=== PATIENT | female | born 1960 | race American Indian/Alaskan Native ===

== ENCOUNTER 2016-11-18 16:49 | Emergency (ER) | payer OTHER ==
--- NOTE | 2016-11-18 17:39 | Emergency Department Report ---
Chief Complaint: High BP Stated Complaint: ELEVATED BP 216/106 Time Seen by Provider: 11/18/16 17:37 - HPI History of Present Illness: PT c/o elevated bp. 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 PT states she has been off her bp medication x 1 week. - ROS Review of Systems: - syncope - sob - Exam Vital Signs: Vital Signs 11/18/16 17:34 Temperature 98.3 F Pulse Rate 71 Respiratory 16 Rate Blood Pressure 186/101 O2 Sat by Pulse 99 Oximetry Physical Exam: pt looks well, non toxic. no acute distress in triage. gcs 15 MSE screening note: Focused history and physical exam performed. Due to findings the following was ordered: labs ED Disposition for MSE Condition: Stable
[2016-11-18 17:55] LABS: Basophils % (Auto) 0.5 % (0.0-1.8); Eosinophils % (Auto) 0.7 % (0.0-4.3); Hematocrit 43.3 % (30.3-42.9); Hemoglobin 13.8 gm/dl (10.1-14.3); Mean Corpuscular HGB Conc 32 % (30-34); Mean Corpuscular Hemoglobin 28 pg (28-32); Mean Corpuscular Volume 87 fl (79-97); Platelet Count 257 K/mm3 (140-440); Red Blood Count 4.99 M/mm3 (3.65-5.03); Red Cell Distribution Width 13.8 % (13.2-15.2); White Blood Count 6.5 K/mm3 (4.5-11.0)
[2016-11-18 18:11] LABS: Anion Gap 19 mmol/L; BUN/Creatinine Ratio 17.77; Blood Urea Nitrogen 16 mg/dL (7-17); Calcium 9.2 mg/dL (8.4-10.2); Carbon Dioxide 26 mmol/L (22-30); Chloride 102.4 mmol/L (98-107); Glucose 99 mg/dL (65-100); Potassium 4.1 mmol/L (3.6-5.0); Sodium 143 mmol/L (137-145)
[2016-11-18] MEDS ORDERED: CATAPRES PO ONE (22:45)
[2016-11-18] MEDS ORDERED: APRESOLINE IV ONE (23:04)
--- NOTE | 2016-11-18 23:17 | Emergency Department Report ---
HPI - General Chief Complaint: High BP Time Seen by Provider: 11/18/16 17:37 - HPI HPI: This is a 56-year-old female presents emergency Department from home with complaint of elevated and uncontrolled blood pressure. The patient has a history of hypertension for which she is normally on 25 mg of hydrochlorothiazide but the patient is been without that medication for about 2 weeks. She used to see a Dr. Omari Hercules for primary care needs but says she is trying to find another physician. She denies any headache, chest pain, shortness breath, nausea, vomiting. She is not taken anything for her symptoms prior to presentation. She was walking around [facility] and she decided to check her blood pressure. When it showed to be very elevated, she went to a fire department where it was rechecked and once again found to be very high, and she was encouraged to go to the emergency department. No recent travel or sick contacts at home. She denies tobacco abuse. She denies any excessive caffeinated product use. ED Past Medical Hx - Past Medical History Previous Medical History?: Yes Hx Hypertension: Yes - Surgical History Past Surgical History?: Yes Additional Surgical History: hysterectomy - Social History Smoking Status: Never Smoker Substance Use Type: None - Medications Home Medications: Home Medications Medication Instructions Recorded Confirmed Last Taken Type amLODIPine [Norvasc] 5 mg PO DAILY #30 tab 11/19/16 Unknown Rx ED Review of Systems ROS: Stated complaint: ELEVATED BP 216/106 Other details as noted in HPI Comment: All other systems reviewed and negative Constitutional: denies: chills, fever Eyes: denies: eye pain, eye discharge, vision change ENT: denies: ear pain, throat pain Respiratory: denies: cough, shortness of breath, wheezing Cardiovascular: denies: chest pain, palpitations Gastrointestinal: denies: abdominal pain, nausea, diarrhea Genitourinary: denies: urgency, dysuria, discharge Musculoskeletal: denies: back pain, joint swelling, arthralgia Skin: denies: rash, lesions Neurological: denies: headache, weakness, paresthesias Physical Exam - Physical Exam Vital Signs: Vital Signs 11/18/16 11/18/16 11/18/16 17:34 22:35 22:53 Temperature 98.3 F 98.3 F Pulse Rate 71 61 59 L Respiratory 16 18 Rate Blood Pressure 186/101 224/117 224/117 O2 Sat by Pulse 99 100 Oximetry Physical Exam: GENERAL: The patient is well-developed well-nourished. HEENT: Normocephalic. Atraumatic. Extraocular motions are intact. Patient has moist mucous membranes. Pupils equal reactive to light bilaterally. NECK: Supple. Trachea is midline. CHEST/LUNGS: Clear to auscultation. There is no respiratory distress noted. HEART/CARDIOVASCULAR: Regular. There is no tachycardia. There is no gallop rub or murmur. ABDOMEN: Abdomen is soft, nontender. Patient has normal bowel sounds. There is no abdominal distention. SKIN: Skin is warm and dry. NEURO: The patient is awake, alert, and oriented. The patient is cooperative. The patient has no focal neurologic deficits. The patient has normal speech. Cranial nerves II through XII grossly intact. MUSCULOSKELETAL: There is no tenderness or deformity. There is no limitation range of motion. There is no evidence of acute injury. ED Course Vital Signs 11/18/16 11/18/16 11/18/16 17:34 22:35 22:53 Temperature 98.3 F 98.3 F Pulse Rate 71 61 59 L Respiratory 16 18 Rate Blood Pressure 186/101 224/117 224/117 O2 Sat by Pulse 99 100 Oximetry ED Medical Decision Making - Lab Data Result diagrams: 11/18/16 17:41 11/18/16 17:41 - Medical Decision Making 56-year-old female presents the emergency department after seeing that she had very high blood pressure and being without her blood pressure medications for a few weeks. She is on hydrochlorothiazide but says that it never really did a good job of controlling her blood pressure anyways. She has a primary care physician but says she is going to have to find a different one for insurance reasons. She denies any headache, chest pain, shortness breath and does not appear in any acute distress. She was given a dose of Catapres and upon reevaluation her blood pressure is much better controlled. There is no focal, motor or sensory deficits in her cranial nerves are intact. The rest of her vitals are also stable including being afebrile. She will be discharged home to follow up with a primary care physician. I have started her on Norvasc. She will keep a blood pressure log. She will return to the ER with any worsening of her symptoms or any acute distress. Critical Care Time: No Critical care attestation.: If time is entered above; I have spent that time in minutes in the direct care of this critically ill patient, excluding procedure time. ED Disposition Clinical Impression: Hypertensive urgency Disposition: DC-01 TO HOME OR SELFCARE Is pt being admited?: No Condition: Stable Instructions: Hypertension (ED) Additional Instructions: Please follow-up with a primary care physician in the next few days. Return to the emergency department with any worsening of her symptoms, intractable headache, development of chest pain or shortness of breath, or any acute distress. Try to stay away from foods that are high in salt and caffeinated products to help with her blood pressure. Keep a blood pressure log. I have started you on a blood pressure medication called Norvasc, to be taken daily. Prescriptions: amLODIPine [Norvasc] 5 mg PO DAILY #30 tab Referrals: DARIEL RAYMOND MD [Staff Physician] - 3-5 Days JENNIE WOODALL MD [Staff Physician] - 3-5 Days OMARI RAE MD [Staff Physician] - 3-5 Days PRIMARY CARE, [Primary Care Provider] - 3-5 Days Time of Disposition: 01:10
[2016-11-19 00:51] VITALS: BP 144/82
== END 2016-11-19 01:37 | disposition home or self-care (01) ==
LOC: ED 16:49
DX: I16.0 Hypertensive urgency (principal)
CPT/HCPCS: 36415; 80048; 85025; 99283; 99284